=== PATIENT | female | born 1955 | race Caucasian/White ===

== ENCOUNTER 2024-07-04 19:38 | Emergency (ER) | payer MEDICARE, MEDICAID ==
[2024-07-06] MEDS ORDERED: NO HOME MEDS (06:41)
== END 2024-07-04 19:54 | disposition still patient (30) ==
LOC: ER 19:39
DX: F41.9 Anxiety disorder, unspecified (principal); Z53.21 Procedure and treatment not carried out due to patient leaving prior to being seen by health care provider
CPT/HCPCS: 99283

== ENCOUNTER 2024-07-05 02:28 | Emergency (ER) | payer MEDICARE, MEDICAID ==
[~2024-07-05] VITALS: Ht 152.4 cm; Wt 36.2 kg
[2024-07-05 05:37] VITALS: BP 160/86; PULSE 99; RESP 20; TEMP 98.6; O2SAT 96
[2024-07-05] MEDS: cephalexin 500mg capsule PO ONE (05:37)
[2024-07-06] MEDS ORDERED: NO HOME MEDS (06:41)
== END 2024-07-05 05:38 | disposition home or self-care (01) ==
LOC: ER 02:31
DX: F41.9 Anxiety disorder, unspecified (principal); Y08.89XA Assault by other specified means, initial encounter; Y93.89 Activity, other specified; Y92.89 Other specified places as the place of occurrence of the external cause; Y99.8 Other external cause status
CPT/HCPCS: 71045; 99283

== ENCOUNTER 2024-07-14 12:20 | Emergency (ER) | payer MEDICAID, MEDICARE, OTHER ==
[~2024-07-14 12:20] MED LIST: NO HOME MEDS
== END 2024-07-14 13:30 | disposition left against medical advice (07) ==
LOC: ER 12:21
DX: Z04.3 Encounter for examination and observation following other accident (principal); Z53.21 Procedure and treatment not carried out due to patient leaving prior to being seen by health care provider; W19.XXXA Unspecified fall, initial encounter; Y93.89 Activity, other specified; Y92.89 Other specified places as the place of occurrence of the external cause; Y99.8 Other external cause status

== ENCOUNTER 2024-07-20 08:07 | Inpatient (IN) | payer MEDICARE, MEDICAID ==
[2024-07-20] VITALS (27 sets, daily range): BP systolic 109–168; BP diastolic 53–104; PULSE 68–104; RESP 10–24; TEMP 97.6–98.4; O2SAT 92–99
[~2024-07-20] VITALS: Ht 152.4 cm; Wt 43.0 kg
[2024-07-20] MEDS ORDERED: magnesium hydroxide 30ml (MOM) UD suspension PO PRN (08:20)
[2024-07-20] MEDS ORDERED: potassium Cl 40MEQ/1/2NS 520ml 520 ML IV PRN (08:20)
[2024-07-20] MEDS ORDERED: mag hydrox/Alum hydrox/simeth 30ml oral suspension PO PRN (08:20)
[2024-07-20] MEDS ORDERED: magnesium Cl slow-release 64mg tablet PO PRN (08:20)
[2024-07-20] MEDS ORDERED: magnesium sulf-water 4G/100mL 100 ML IV PRN (08:20)
[2024-07-20] MEDS ORDERED: acetaminophen 325mg tablet PO PRN (08:20)
[2024-07-20] MEDS ORDERED: potassium Cl 20 mEq SR tablet PO PRN ×2 (08:20)
[2024-07-20] MEDS ORDERED: morphine 2 MG/ML inj. syringe IV PRN ×3 (08:20→13:15)
[2024-07-20] MEDS ORDERED: magnesium sulf-water 2g/50mL 50 ML IV PRN (08:20)
[2024-07-20] MEDS ORDERED: NICO-687 TD (08:44)
[2024-07-20] MEDS ORDERED: CYCL-1 PO (08:44)
[2024-07-20] MEDS ORDERED: TRAZ150T78 PO (08:44)
[2024-07-20] MEDS ORDERED: OLAN10TA73 PO (08:44)
[2024-07-20] MEDS ORDERED: ceFOXitin 2GM-NS 100mL ADDvant 100 ML IV ONE (12:15)
[2024-07-20 12:16] LABS: BASOPHILS # (AUTO) 0.1 X10'3 (0-0.2); BASOPHILS % (AUTO) 0.6 % (0-1); EOSINOPHILS # (AUTO) 0.2 X10'3 (0-0.9); EOSINOPHILS % (AUTO) 2.2 % (0-6); HEMATOCRIT 40.3 % (35.0-45.0); HEMOGLOBIN 13.4 g/dl (12.0-16.0); LYMPHOCYTES # (AUTO) 1.8 X10'3 (1.1-4.8); LYMPHOCYTES % (AUTO) 20.5 % (21-51); MEAN CORPUSCULAR HEMOGLOBIN 31.2 PG (27.0-31.0); MEAN CORPUSCULAR HGB CONC 33.2 g/dL (33.0-36.5); MEAN CORPUSCULAR VOLUME 93.8 FL (78-98); MEAN PLATELET VOLUME 8.1 FL (7.4-10.4); MONOCYTES # (AUTO) 0.5 X10'3 (0-0.9); MONOCYTES % (AUTO) 5.3 % (2-12); NEUTROPHILS # (AUTO) 6.3 X10'3 (1.8-7.7); NEUTROPHILS % (AUTO) 71.4 % (42-75); PLATELET COUNT 386 X10'3 (140-440); RED BLOOD COUNT 4.29 X10'6 (4.20-5.60); RED CELL DISTRIBUTION WIDTH 12.7 % (11.5-14.5); WHITE BLOOD COUNT 8.8 X10'3 (4.5-11.0)
[2024-07-20] MEDS: ceFOXitin sod/dextrose 2g/50ml 50 ML IV ONE (12:33)
[2024-07-20] MEDS ORDERED: sevoflurane 250ml liquid IH ONE (12:36)
[2024-07-20] MEDS ORDERED: midazolam 1 mg/ML 2ml injection ONE (12:37)
[2024-07-20] MEDS ORDERED: propofol inj 20 ML IV ONE (12:37)
[2024-07-20] MEDS ORDERED: fentaNYL /PF 50mcg/ml 5ml ampule ONE (12:37)
[2024-07-20 12:48] LABS: ALANINE AMINOTRANSFERASE 27 U/L (12-78); ALBUMIN 3.5 G/DL (3.4-5.0); ALBUMIN/GLOBULIN RATIO 0.9 (1.1-1.5); ALKALINE PHOSPHATASE 81 IU/L (46-116); ANION GAP 8 (8-16); ASPARTATE AMINO TRANSFERASE 23 U/L (10-37); BILIRUBIN,TOTAL 0.3 MG/DL (0.1-1.0); BLOOD UREA NITROGEN 20 MG/DL (7-18); BUN/CREATININE RATIO 39.2 (10.0-20.0); CALCIUM 8.9 MG/DL (8.5-10.1); CHLORIDE 102 MMOL/L (99-107); CREATININE 0.51 MG/DL (0.40-0.90); GLUCOSE 92 MG/DL (70-104); MAGNESIUM 1.9 MG/DL (1.5-2.4); POTASSIUM 4.1 MMOL/L (3.5-5.1); SODIUM 139 MMOL/L (135-145); TOTAL CARBON DIOXIDE 29.2 MMOL/L (24-32); TOTAL PROTEIN 7.2 G/DL (6.4-8.2); eCRCL 72 ML/MIN; eGFR > 90 ML/MIN
[2024-07-20] MEDS ORDERED: meperidine/PF 25mg/ml syringe IV PRN ×5 (13:10→13:15)
[2024-07-20] MEDS: ringers solution, lacted 1,000 ML IV SCH ×2 (13:10→13:15)
[2024-07-20] MEDS ORDERED: morphine 4 MG/ML inj SYRINge IV PRN ×2 (13:10→13:15)
[2024-07-20] MEDS ORDERED: proCHLORperazine 10 MG/2 ml inj IV PRN (13:15)
[2024-07-20] MEDS ORDERED: ondansetron/PF 4mg/2ml inj IV PRN ×2 (13:15→14:00)
[2024-07-20 13:33] LABS: APTT 26 SECONDS (22-32); INR 0.9 INR; PROTHROMBIN TIME 9.8 SECONDS (9.0-12.0)
[2024-07-20] MEDS ORDERED: BUPIVAcaine 2.5mg/ml inj 50ml vial (contains preservative) ONE (13:39)
[2024-07-20] MEDS ORDERED: BUPIVACAINE liposomal/PF 13.3 MG/ML vial IM ONE (13:39)
[2024-07-20] MEDS ORDERED: rocuronium 10mg/ml inj IV ONE (13:54)
[2024-07-20] MEDS ORDERED: glycopyrrolate 0.2mg/ml inj ONE (13:54)
[2024-07-20] MEDS ORDERED: neostigmine methylsulfate 1 MG/ML 10ml vial ONE (13:54)
[2024-07-20] MEDS ORDERED: naloxone 0.4 mg/ml inj IV PRN (14:00)
[2024-07-20] MEDS: ondansetron/PF 4mg/2ml inj IV PRN (15:12)
[2024-07-20] MEDS: normal saline 1000ml 1,000 ML IV SCH (15:13)
[2024-07-20] MEDS: ondansetron 4mg rapidly disintigrating tab PO STA (15:18)
[2024-07-20] MEDS: proCHLORperazine 10 MG/2 ml inj IV PRN (15:44)
[2024-07-20] MEDS: ceFOXitin 1 GM/D5W 50mL IVPB 50 ML IV SCH (15:50)
[2024-07-20] MEDS: meperidine/PF 25mg/ml syringe IV PRN (15:58)
[2024-07-20] MEDS: HYDROcodone/acetaminophen 5mg/325mg tablet PO PRN (19:04)
[2024-07-20] MEDS: hydrALAZINE 20mg/ml inj. IV SCH (19:05)
[2024-07-20] MEDS: K and/or MAG REPLACEMENT MC SCH (19:09)
[2024-07-20] MEDS: magnesium hydroxide 30ml (MOM) UD suspension PO SCH (22:00)
[2024-07-20] MEDS: traZODone 150mg tablet PO SCH (23:23)
[2024-07-21] VITALS (8 sets, daily range): BP systolic 101–122; BP diastolic 46–64; PULSE 64–100; RESP 12–18; TEMP 97.4–98.7; O2SAT 92–95
[2024-07-21] MEDS: morphine 2 MG/ML inj. syringe IV PRN (01:50)
[2024-07-21] MEDS: ondansetron/PF 4mg/2ml inj IV PRN (05:33)
[2024-07-21 07:53] LABS: BASOPHILS % (AUTO) 0.3 % (0-1); EOSINOPHILS % (AUTO) 0.1 % (0-6); HEMATOCRIT 39.7 % (35.0-45.0); HEMOGLOBIN 13.1 g/dl (12.0-16.0); LYMPHOCYTES # (AUTO) 1.4 X10'3 (1.1-4.8); LYMPHOCYTES % (AUTO) 10.5 % (21-51); MEAN CORPUSCULAR HEMOGLOBIN 30.8 PG (27.0-31.0); MEAN CORPUSCULAR VOLUME 93.3 FL (78-98); MEAN PLATELET VOLUME 8.7 FL (7.4-10.4); MONOCYTES # (AUTO) 0.8 X10'3 (0-0.9); MONOCYTES % (AUTO) 6.3 % (2-12); NEUTROPHILS # (AUTO) 10.8 X10'3 (1.8-7.7); NEUTROPHILS % (AUTO) 82.8 % (42-75); PLATELET COUNT 393 X10'3 (140-440); RED BLOOD COUNT 4.25 X10'6 (4.20-5.60); RED CELL DISTRIBUTION WIDTH 13.1 % (11.5-14.5)
[2024-07-21] MEDS: olanzapine 10mg tablet PO SCH (08:00)
[2024-07-21 08:18] LABS: ALBUMIN 3.1 G/DL (3.4-5.0); ANION GAP 10 (8-16); BLOOD UREA NITROGEN 13 MG/DL (7-18); CALCIUM 8.4 MG/DL (8.5-10.1); CHLORIDE 98 MMOL/L (99-107); CREATININE 0.81 MG/DL (0.40-0.90); GLUCOSE 146 MG/DL (70-104); POTASSIUM 3.9 MMOL/L (3.5-5.1); SODIUM 134 MMOL/L (135-145); TOTAL CARBON DIOXIDE 25.9 MMOL/L (24-32); eCRCL 45 ML/MIN; eGFR 70 ML/MIN
[2024-07-22 06:00] VITALS: BP 119/63; PULSE 92; RESP 14; TEMP 97.8; O2SAT 97
[2024-07-22 07:15] LABS: BASOPHILS % (AUTO) 0.4 % (0-1); EOSINOPHILS # (AUTO) 0.1 X10'3 (0-0.9); EOSINOPHILS % (AUTO) 0.8 % (0-6); HEMATOCRIT 36.8 % (35.0-45.0); HEMOGLOBIN 12.5 g/dl (12.0-16.0); LYMPHOCYTES # (AUTO) 1.7 X10'3 (1.1-4.8); LYMPHOCYTES % (AUTO) 15.4 % (21-51); MEAN CORPUSCULAR HEMOGLOBIN 31.7 PG (27.0-31.0); MEAN CORPUSCULAR HGB CONC 33.9 g/dL (33.0-36.5); MEAN CORPUSCULAR VOLUME 93.3 FL (78-98); MEAN PLATELET VOLUME 8.6 FL (7.4-10.4); MONOCYTES # (AUTO) 0.6 X10'3 (0-0.9); NEUTROPHILS # (AUTO) 8.3 X10'3 (1.8-7.7); NEUTROPHILS % (AUTO) 77.4 % (42-75); PLATELET COUNT 417 X10'3 (140-440); RED BLOOD COUNT 3.94 X10'6 (4.20-5.60); RED CELL DISTRIBUTION WIDTH 12.9 % (11.5-14.5); WHITE BLOOD COUNT 10.7 X10'3 (4.5-11.0)
[2024-07-22 07:27] LABS: ALBUMIN 2.5 G/DL (3.4-5.0); ANION GAP 7 (8-16); BLOOD UREA NITROGEN 13 MG/DL (7-18); BUN/CREATININE RATIO 20.3 (10.0-20.0); CALCIUM 8.2 MG/DL (8.5-10.1); CHLORIDE 102 MMOL/L (99-107); CREATININE 0.64 MG/DL (0.40-0.90); GLUCOSE 115 MG/DL (70-104); SODIUM 138 MMOL/L (135-145); eCRCL 57 ML/MIN; eGFR > 90 ML/MIN
[2024-07-22 08:00] VITALS: RESP 14; O2SAT 97
[2024-07-22 10:00] VITALS: BP 115/57; PULSE 94; RESP 15; TEMP 97.1; O2SAT 97
[2024-07-22 18:00] VITALS: BP 138/67; PULSE 105; RESP 16; TEMP 98.4; O2SAT 91
[2024-07-22 19:24] VITALS: BP 105/57; PULSE 95; RESP 16; TEMP 98.4; O2SAT 95
[2024-07-22] MEDS: enoxaparin 40mg/0.4ml syringe SUBCUT SCH (19:53)
[2024-07-22 22:00] VITALS: BP 117/62; PULSE 81; RESP 16; TEMP 98.2; O2SAT 95
[2024-07-23] VITALS (8 sets, daily range): BP systolic 114–139; BP diastolic 57–72; PULSE 89–107; RESP 14–16; TEMP 98.2–98.6; O2SAT 91–97
[2024-07-23 07:28] LABS: ALBUMIN 2.8 G/DL (3.4-5.0); ANION GAP 6 (8-16); BLOOD UREA NITROGEN 14 MG/DL (7-18); CALCIUM 8.2 MG/DL (8.5-10.1); CHLORIDE 101 MMOL/L (99-107); GLUCOSE 112 MG/DL (70-104); SODIUM 134 MMOL/L (135-145); TOTAL CARBON DIOXIDE 26.6 MMOL/L (24-32); eCRCL 73 ML/MIN; eGFR > 90 ML/MIN
[2024-07-23 07:29] LABS: POTASSIUM 4.4 MMOL/L (3.5-5.1)
[2024-07-23] MEDS: LORazepam 2 mg/ml vial IV PRN (09:29)
[2024-07-23 15:26] LABS: BASOPHILS % (AUTO) 0.4 % (0-1); EOSINOPHILS # (AUTO) 0.1 X10'3 (0-0.9); HEMOGLOBIN 12.7 g/dl (12.0-16.0); LYMPHOCYTES # (AUTO) 1.5 X10'3 (1.1-4.8); LYMPHOCYTES % (AUTO) 13.1 % (21-51); MEAN CORPUSCULAR HGB CONC 32.5 g/dL (33.0-36.5); MEAN CORPUSCULAR VOLUME 92.5 FL (78-98); MONOCYTES # (AUTO) 0.7 X10'3 (0-0.9); MONOCYTES % (AUTO) 6.5 % (2-12); NEUTROPHILS # (AUTO) 9.1 X10'3 (1.8-7.7); PLATELET COUNT 436 X10'3 (140-440); RED BLOOD COUNT 4.22 X10'6 (4.20-5.60); WHITE BLOOD COUNT 11.5 X10'3 (4.5-11.0)
[2024-07-23] MEDS: hyDRALAzine 10mg tablet PO SCH (21:00)
[2024-07-24 06:00] VITALS: BP 137/64; PULSE 89; RESP 18; TEMP 97.5; O2SAT 91
[2024-07-24 06:32] LABS: BASOPHILS # (AUTO) 0.1 X10'3 (0-0.2); BASOPHILS % (AUTO) 0.6 % (0-1); EOSINOPHILS # (AUTO) 0.3 X10'3 (0-0.9); HEMOGLOBIN 12.6 g/dl (12.0-16.0); LYMPHOCYTES # (AUTO) 2.3 X10'3 (1.1-4.8); MEAN CORPUSCULAR HEMOGLOBIN 31.1 PG (27.0-31.0); MEAN CORPUSCULAR HGB CONC 33.3 g/dL (33.0-36.5); MEAN CORPUSCULAR VOLUME 93.5 FL (78-98); MEAN PLATELET VOLUME 8.6 FL (7.4-10.4); MONOCYTES # (AUTO) 0.6 X10'3 (0-0.9); NEUTROPHILS # (AUTO) 6.4 X10'3 (1.8-7.7); NEUTROPHILS % (AUTO) 66.4 % (42-75); PLATELET COUNT 479 X10'3 (140-440); RED BLOOD COUNT 4.06 X10'6 (4.20-5.60); RED CELL DISTRIBUTION WIDTH 12.7 % (11.5-14.5); WHITE BLOOD COUNT 9.7 X10'3 (4.5-11.0)
[2024-07-24 06:43] LABS: ALBUMIN 2.6 G/DL (3.4-5.0); ANION GAP 6 (8-16); BLOOD UREA NITROGEN 15 MG/DL (7-18); BUN/CREATININE RATIO 27.8 (10.0-20.0); CALCIUM 8.4 MG/DL (8.5-10.1); CHLORIDE 101 MMOL/L (99-107); CREATININE 0.54 MG/DL (0.40-0.90); GLUCOSE 88 MG/DL (70-104); POTASSIUM 3.6 MMOL/L (3.5-5.1); SODIUM 134 MMOL/L (135-145); TOTAL CARBON DIOXIDE 26.7 MMOL/L (24-32); eCRCL 68 ML/MIN; eGFR > 90 ML/MIN
[2024-07-24 07:00] VITALS: RESP 18; O2SAT 91
[2024-07-24 10:00] VITALS: BP 130/60; PULSE 94; RESP 18; TEMP 98; O2SAT 93
[2024-07-24] MEDS: hyDRALAzine 10mg tablet PO SCH (15:37)
[2024-07-24 18:00] VITALS: BP 170/83; PULSE 89; RESP 18; TEMP 97.5; O2SAT 96
[2024-07-24 20:00] VITALS: RESP 18; O2SAT 96
[2024-07-24 22:00] VITALS: BP 158/74; PULSE 101; RESP 18; TEMP 97.6; O2SAT 92
[2024-07-25 06:10] LABS: ALBUMIN 2.6 G/DL (3.4-5.0); ANION GAP 6 (8-16); BLOOD UREA NITROGEN 10 MG/DL (7-18); BUN/CREATININE RATIO 16.7 (10.0-20.0); CHLORIDE 105 MMOL/L (99-107); GLUCOSE 104 MG/DL (70-104); POTASSIUM 3.4 MMOL/L (3.5-5.1); SODIUM 139 MMOL/L (135-145); TOTAL CARBON DIOXIDE 27.6 MMOL/L (24-32); eCRCL 61 ML/MIN; eGFR > 90 ML/MIN
[2024-07-25 06:13] LABS: BASOPHILS # (AUTO) 0.1 X10'3 (0-0.2); BASOPHILS % (AUTO) 0.8 % (0-1); EOSINOPHILS # (AUTO) 0.5 X10'3 (0-0.9); EOSINOPHILS % (AUTO) 5.2 % (0-6); HEMATOCRIT 35.8 % (35.0-45.0); HEMOGLOBIN 12.1 g/dl (12.0-16.0); LYMPHOCYTES % (AUTO) 22.9 % (21-51); MEAN CORPUSCULAR HEMOGLOBIN 31.3 PG (27.0-31.0); MEAN CORPUSCULAR HGB CONC 33.9 g/dL (33.0-36.5); MEAN CORPUSCULAR VOLUME 92.5 FL (78-98); MEAN PLATELET VOLUME 7.9 FL (7.4-10.4); MONOCYTES # (AUTO) 0.5 X10'3 (0-0.9); MONOCYTES % (AUTO) 6.1 % (2-12); NEUTROPHILS # (AUTO) 5.8 X10'3 (1.8-7.7); PLATELET COUNT 438 X10'3 (140-440); RED BLOOD COUNT 3.88 X10'6 (4.20-5.60); WHITE BLOOD COUNT 8.8 X10'3 (4.5-11.0)
[2024-07-25 06:41] VITALS: BP 131/78; PULSE 75; RESP 17; TEMP 97.7; O2SAT 95
[2024-07-25 07:00] VITALS: RESP 17; O2SAT 95
[2024-07-25 14:27] VITALS: BP_SYST 132; PULSE 89
[2024-07-25 14:30] VITALS: RESP 12
[2024-07-25] MEDS ORDERED: magnesium sulf-water 2g/50mL 50 ML IV PRN (16:20)
[2024-07-25] MEDS ORDERED: potassium Cl 40MEQ/1/2NS 520ml 520 ML IV PRN (16:20)
[2024-07-25] MEDS ORDERED: potassium Cl 20 mEq SR tablet PO PRN ×2 (16:20)
[2024-07-25] MEDS ORDERED: K and/or MAG REPLACEMENT MC SCH (20:00)
== END 2024-07-25 15:40 | disposition home or self-care (01) | DRG 330 ==
LOC: PAS IN 12:05 → ORTHO 4S 16:50 → SUR 3N 07-23 17:23
PROVIDERS: ADMIT Surgery; ATTEND Surgery
PROC: 0DQP0ZZ Repair Rectum, Open Approach (ICD-10-PCS; principal; 2024-07-20 12:36)
DX: K62.3 Rectal prolapse (principal); E44.0 Moderate protein-calorie malnutrition; Z68.1 Body mass index [BMI] 19.9 or less, adult; Q43.8 Other specified congenital malformations of intestine; K80.20 Calculus of gallbladder without cholecystitis without obstruction; F31.9 Bipolar disorder, unspecified; Z90.49 Acquired absence of other specified parts of digestive tract; Z88.6 Allergy status to analgesic agent; Z88.8 Allergy status to other drugs, medicaments and biological substances; Z91.018 Allergy to other foods; Z79.899 Other long term (current) drug therapy; Z90.710 Acquired absence of both cervix and uterus; Z87.891 Personal history of nicotine dependence; Z88.1 Allergy status to other antibiotic agents
CPT/HCPCS: 36415; 80048; 80053; 83735; 85025; 85610; 85730; 97116; 97161; 97530; A4618; A6253; A6449; A7000; C1758; C9290; G0378; J0360; J0694; J0780; J1100; J1650; J2060; J2175; J2250; J2270; J2405; J2704; J2710; J3010; J3490; J7030; J7120

== ENCOUNTER 2024-08-18 14:04 | Emergency (ER) | payer MEDICAID, MEDICARE, OTHER ==
[~2024-08-18] VITALS: Ht 160 cm; Wt 37.4 kg
[~2024-08-18 14:04] MED LIST changes: +CYCL-1 PO; +NICO-687 TD; -NO HOME MEDS; +OLAN10TA73 PO; +TRAZ150T78 PO
[2024-08-18] MEDS ORDERED: OLANZapine 2.5MG tablet PO SCH (14:55)
[2024-08-18] MEDS ORDERED: olanzapine 10mg tablet PO SCH (14:56)
[2024-08-18 15:12] LABS: BASOPHILS # (AUTO) 0.1 X10'3 (0-0.2); BASOPHILS % (AUTO) 1.1 % (0-1); EOSINOPHILS # (AUTO) 0.1 X10'3 (0-0.9); EOSINOPHILS % (AUTO) 1.1 % (0-6); HEMATOCRIT 46.5 % (35.0-45.0); HEMOGLOBIN 15.8 g/dl (12.0-16.0); LYMPHOCYTES % (AUTO) 13.8 % (21-51); MEAN CORPUSCULAR HEMOGLOBIN 31.7 PG (27.0-31.0); MEAN PLATELET VOLUME 8.8 FL (7.4-10.4); MONOCYTES # (AUTO) 0.5 X10'3 (0-0.9); MONOCYTES % (AUTO) 7.6 % (2-12); NEUTROPHILS # (AUTO) 5.5 X10'3 (1.8-7.7); NEUTROPHILS % (AUTO) 76.4 % (42-75); PLATELET COUNT 320 X10'3 (140-440); RED BLOOD COUNT 4.99 X10'6 (4.20-5.60); WHITE BLOOD COUNT 7.1 X10'3 (4.5-11.0)
[2024-08-18 15:33] LABS: ALBUMIN 4.1 G/DL (3.4-5.0); ANION GAP 11 (8-16); BLOOD UREA NITROGEN 9 MG/DL (7-18); BUN/CREATININE RATIO 19.1 (10.0-20.0); CALCIUM 9.5 MG/DL (8.5-10.1); CHLORIDE 99 MMOL/L (99-107); CREATININE 0.47 MG/DL (0.40-0.90); ETHANOL < 10 MG/DL (<10); GLUCOSE 105 MG/DL (70-104); SODIUM 138 MMOL/L (135-145); THYROID STIMULATING HORMONE 2.42 ulU/ml (0.34-4.50); TOTAL CARBON DIOXIDE 28.1 MMOL/L (24-32); eCRCL 68 ML/MIN; eGFR > 90 ML/MIN
[2024-08-18 15:38] LABS: POTASSIUM 2.9 MMOL/L (3.5-5.1)
[2024-08-18 16:59] LABS: BILIRUBIN,URINE MODERATE (Neg); CLARITY,URINE SLIGHTLY CLOUDY (Clear); GLUCOSE, URINE NEGATIVE (Neg); KETONES,URINE >=80 mg/dl (Neg); LEUKOCYTE ESTERASE ,URINE NEGATIVE (Neg); NITRITES, URINE NEGATIVE (Neg); OCCULT BLOOD,URINE NEGATIVE (Neg); PROTEIN,URINE 100 mg/dl (Neg)
[2024-08-18] MEDS: potassium Cl 20 mEq SR tablet PO SCH (16:59)
[2024-08-18] MEDS: LORazepam 0.5 MG tablet PO PRN (16:59)
[2024-08-18 17:00] VITALS: RESP 16
[2024-08-18] MEDS ORDERED: NO HOME MEDS (17:04)
[2024-08-18 17:06] LABS: UA COLLECTION TYPE VOIDED
[2024-08-18 17:07] LABS: COLOR,URINE DARK YELLOW (Yellow)
[2024-08-18 17:08] LABS: BACTERIA,URINE FEW /HPF (Neg); HYALINE CASTS 0-3 /LPF (NEGATIVE); MUCUS STRANDS MANY /LPF (Neg); RBC,URINE 0-2 /HPF (0-2); SQUAMOUS EPITHELIAL CELL,UR MODERATE /LPF (FEW)
[2024-08-18 17:14] LABS: URINE AMPHETAMINE SCREEN NEGATIVE (Neg); URINE BARBITUATE SCREEN NEGATIVE (Neg); URINE BENZODIAZEPINES SCREEN NEGATIVE (Neg); URINE CANNABINOID SCREEN NEGATIVE (Neg); URINE COCAINE SCREEN NEGATIVE (Neg); URINE METHADONE SCREEN NEGATIVE (Neg); URINE OPIATE SCREEN NEGATIVE (Neg); URINE PHENCYCLIDINE SCREEN NEGATIVE (Neg)
[2024-08-18] MEDS ORDERED: QUET50TA PO (18:39)
[2024-08-18 19:19] VITALS: BP 94/56; PULSE 92; O2SAT 98
[2024-08-18 19:23] VITALS: TEMP 97.8
== END 2024-08-18 19:20 | disposition home or self-care (01) ==
LOC: ER 14:05
DX: F41.9 Anxiety disorder, unspecified (principal); K62.3 Rectal prolapse; F12.10 Cannabis abuse, uncomplicated; F31.9 Bipolar disorder, unspecified; Z88.1 Allergy status to other antibiotic agents; Z88.6 Allergy status to analgesic agent; Z79.899 Other long term (current) drug therapy; Z20.822 Contact with and (suspected) exposure to COVID-19
CPT/HCPCS: 36415; 80048; 80305; 80320; 81001; 84443; 85025; 87811; 99284

== ENCOUNTER 2024-10-26 12:32 | Emergency (ER) | payer MEDICARE, MEDICAID ==
[~2024-10-26] VITALS: Ht 152.4 cm; Wt 32.6 kg
[~2024-10-26 12:32] MED LIST changes: -CYCL-1 PO; -NICO-687 TD; +NO HOME MEDS; -OLAN10TA73 PO; -TRAZ150T78 PO
[2024-10-26 12:41] VITALS: BP 167/97; PULSE 103; RESP 16; O2SAT 97
[2024-10-26] MEDS: LORazepam 0.5 MG tablet PO ONE (15:14)
[2024-10-26] MEDS ORDERED: HYDR-3965 PO (15:17)
[2024-10-26] MEDS ORDERED: LORA-268 PO (15:17)
[2024-10-26 15:33] VITALS: TEMP 97.7
== END 2024-10-26 15:37 | disposition home or self-care (01) ==
LOC: ER 12:32
DX: M25.552 Pain in left hip (principal); F41.9 Anxiety disorder, unspecified; F32.A Depression, unspecified; Z88.8 Allergy status to other drugs, medicaments and biological substances; Z88.6 Allergy status to analgesic agent
CPT/HCPCS: 99283

== ENCOUNTER 2025-01-09 19:20 | Emergency (ER) | payer SELFPAY ==
[~2025-01-09] VITALS: Ht 152.4 cm; Wt 38.0 kg
[~2025-01-09 19:20] MED LIST changes: +LORA-268 PO
[2025-01-09] MEDS ORDERED: DICL20GE TOP (22:25)
--- NOTE | 2025-01-09 22:26 | Physician Documentation ---
History of Present Illness ~ Chief Complaint: Mechanical Fall Stated Complaint: LEG PAIN Time Seen by MD: 21:45 Primary Medical Doctor: Neymar Mckeon MD HPI This is a 69-year-old female who presents with two days of pain to her left hip after a trip and fall landing on her left hip, patient reports that she has surgical hardware in the area after a previous trip and fall some time ago. Patient reports she was able to walk and bear weight on the affected limb though it was quite painful to do so, patient reports pain 8/10 despite taking Tylenol for the pain. Patient reports no other injuries or acute medical concerns or symptoms. Tetanus within 5 Years?: No Medication Reconciliation Allergies: Coded Allergies: diphenhydramine (Unverified Allergy, Intermediate, RESTLESS LEG SYNDROME, 08/20/24) ibuprofen (Verified Allergy, Intermediate, 08/20/24) aspirin (Unverified Allergy, Unknown, 08/20/24) haloperidol (Unverified Allergy, Unknown, 08/20/24) orange (Verified Allergy, Unknown, 08/20/24) Uncoded Allergies: CERTAIN ANTIBIOTICS (Allergy, Unknown, 07/05/24) UNABLE TO STATES WHAT ABX SHE IS ALLERGIC TO Scheduled Diclofenac Sodium (Voltaren Arthritis Pain), 1 APPLIC TOP BID Scheduled PRN Lorazepam (Ativan), 1 TAB PO Q12H PRN PRN for anxiety Miscellaneous Medications Home Med List (No Home Medications), (Reported) Past Medical History Past Medical History: Depression Patient History: Patient reports no known family medical history. Review of Systems ROS Left hip pain as stated above in the HPI, otherwise all systems are reviewed and negative. Physical Exam Vital Signs: Temperature: 98.5, Source: Oral, Heart Rate: 103, Respiratory Rate: 17, BP: 162/87, Pulse Oximetry: 97, Weight: 37.950 Oxygen Flow Rate: 0 Physical Exam VITALS: Reviewed and as above. GENERAL: Alert, nontoxic appearing, no apparent distress. RESPIRATORY: No increased work of breathing, no respiratory distress, speaking in full clear sentences MUSCULOSKELETAL:Left hip tender to palpation, no deformity, no ecchymosis, no erythema, no edema Progress Results/Orders Results/Orders Orders - GUILLERMINA WILCOX MANAGER [employer] Femur 2 Views (01/09/25 21:10) Completed Orders - GUILLERMINA WILCOX [employer] Femur 2 Views (01/09/25 21:10) Oxycodone/Acetaminophen Tablet (Percocet (01/09/25 22:30) Ondansetron Disint. Tablet (Zofran Odt T (01/09/25 22:30) Medications Received in ER Medications (Trade) Dose Ordered Sig/Giuseppe Route PRN Reason Start Time Stop Time Status Last Admin Dose Admin (Percocet 5-325mg tab) 1 tab ONCE ONCE PO 01/09/25 22:30 01/09/25 22:31 DC 01/09/25 22:32 1 TAB (Zofran ODT tablet) 4 mg ONCE ONCE PO 01/09/25 22:30 01/09/25 22:31 DC 01/09/25 22:32 4 MG Vital Signs 01/09/25 01/09/25 21:00 23:00 Temp 98.5 98.6 Pulse 103 99 Resp 17 18 B/P (MAP) 162/87 160/86 Pulse Ox 97 97 O2 Flow Rate 0 EKG/XRAY/CT/US/VASC/MRI Bone/Soft Tissue X-Ray (Ext.) : Additional Comment Clinical History FALL Comparison None Technique: Four radiographs were submitted for review. Without Contrast ADRIANO JIMENEZ, [id number] FINDINGS:/IMPRESSION: Status post left hip ORIF. Degenerative changes at the left hip. Moderate stool in the colon. Degenerative changes at the knee. This report was electronically signed by Jasmyn Rodriguez MD on 01/09/2025 11:57:27 PM. Electronically Signed by:JASMYN RODRIGUEZ MD Date & Time: 01/10/25 0000 Dictated by: JASMYN RODRIGUEZ MD Dictation date and time: 01/10/25 0000 I have reviewed and agree with the radiology report. I have reviewed and interpreted the imaging as: No fracture or dislocation Medical Decision Making Findings This 69-year-old female presented with left hip and thigh pain after a trip and fall striking her left hip and thigh two days prior, patient reports she was able to walk and bear weight however it was quite painful for her. Physical exam did not demonstrate erythema, ecchymosis, crepitus, or deformity though hip and thigh were tender to palpation. As patient was reporting significant pain to the area she was medicated with dose of Percocet. Patient had reported no other injuries and no other injuries were observed on physical exam. Remainder of physical exam was benign and x-ray did not demonstrate evidence of fracture or dislocation. At a discussion with the patient about appropriate pain medication for outpatient management of her hip pain and with shared decision- making patient will opt for a topical NSAID in addition to Tylenol for continued hip pain. Patient is appropriate for outpatient follow up and was provided return to care precautions which she verbalized understanding of. Differential Dx:Considerations: Include: Closed head injury, Abrasion(s), Contusion(s), Hematoma(s), Laceration(s), Other (Fracture, dislocation,) Departure Disposition: 01 HOME / SELF CARE / HOMELESS Impression: Primary Impression: Pain in left thigh Condition: Improved Discharge Instructions: Contusion Additional Instructions: Use the Voltaren gel as prescribed, additionally use Tylenol as needed for pain as directed by the [id number] packaging. Please follow up with your primary care provider in the next few days. Please return to the emergency department for any new or worsening concerning symptoms. Referrals: NO PRIMARY CARE PROVIDER (PCP) Prescriptions Diclofenac Sodium (Voltaren Arthritis Pain) 1 % Gel..gram. 1 APPLIC TOP BID for pain for 10 Days, #30 GM Prov: GUILLERMINA WILCOX 01/09/25 Education Educated: Patient Educated regarding: diagnosis, treatment, prognosis, need for follow up Signature Scribe Signature: No scribe Attestation: The note accurately reflects work and decisions made by me.COLUMBA Holt 01/10/25 03:45 GUILLERMINA WILCOX January 09, 2025 22:26
[2025-01-09] MEDS: oxyCODONE/APAP 5-325mg tablet PO ONE (22:32)
[2025-01-09] MEDS: ondansetron 4mg rapidly disintigrating tab PO ONE (22:32)
[2025-01-09 23:00] VITALS: BP 160/86; PULSE 99; RESP 18; TEMP 98.6; O2SAT 97
--- NOTE | 2025-01-10 | RADIOLOGY REPORT ---
Clinical History FALL Comparison None Technique: Four radiographs were submitted for review. Without Contrast ADRIANO JIMENEZ, [id number] FINDINGS:/IMPRESSION: Status post left hip ORIF. Degenerative changes at the left hip. Moderate stool in the colon. Degenerative changes at the knee. This report was electronically signed by Ino Monet MD on 01/09/2025 11:57:27 PM.
== END 2025-01-09 23:01 | disposition home or self-care (01) ==
LOC: ER 19:20
DX: M25.552 Pain in left hip (principal); Z88.6 Allergy status to analgesic agent; W01.0XXA Fall on same level from slipping, tripping and stumbling without subsequent striking against object, initial encounter; Y93.89 Activity, other specified; Y92.89 Other specified places as the place of occurrence of the external cause; Y99.8 Other external cause status
CPT/HCPCS: 73552; 99284

== ENCOUNTER 2025-01-11 07:08 | Emergency (ER) | payer SELFPAY ==
[~2025-01-11] VITALS: Ht 152.4 cm; Wt 36.7 kg
[~2025-01-11 07:08] MED LIST changes: +DICL20GE TOP
[2025-01-11 07:10] VITALS: BP 175/95; PULSE 107; O2SAT 98
[2025-01-11] MEDS ORDERED: LIDO1ADH78 TOP (08:41)
--- NOTE | 2025-01-11 08:42 | Physician Documentation ---
History of Present Illness ~ Chief Complaint: Hip pain Stated Complaint: PAIN IN LEG Time Seen by MD: 08:36 Primary Medical Doctor: Neymar Mckeon MD HPI 69-year-old female history of left femur fracture status post IM nail 2023 presenting for left thigh pain after fall 2 days ago. She was seen in the ED at that time had x-rays performed which showed no acute fracture. She was given a Percocet which �worked well� she also uses THC to help manage her pain and she does not have any money to buy any. She denies any fevers Tetanus within 5 Years?: No Medication Reconciliation Allergies: Coded Allergies: diphenhydramine (Unverified Allergy, Intermediate, RESTLESS LEG SYNDROME, 08/20/24) ibuprofen (Verified Allergy, Intermediate, 08/20/24) aspirin (Unverified Allergy, Unknown, 08/20/24) haloperidol (Unverified Allergy, Unknown, 08/20/24) orange (Verified Allergy, Unknown, 08/20/24) Uncoded Allergies: CERTAIN ANTIBIOTICS (Allergy, Unknown, 07/05/24) UNABLE TO STATES WHAT ABX SHE IS ALLERGIC TO Scheduled Diclofenac Sodium (Voltaren Arthritis Pain), 1 APPLIC TOP BID Lidocaine (Lidocaine), 1 PATCH TOP DAILY Scheduled PRN Lorazepam (Ativan), 1 TAB PO Q12H PRN PRN for anxiety Miscellaneous Medications Home Med List (No Home Medications), (Reported) Past Medical History Past Medical History: Depression Patient History: Patient reports no known family medical history. Review of Systems All Other Systems at this time: Reviewed and Negative Physical Exam Vital Signs: Temperature: 98.0, Source: Temporal, Heart Rate: 107, Respiratory Rate: 16, BP: 175/95, Pulse Oximetry: 98, Weight: 36.700 Oxygen Flow Rate: 0 Physical Exam Well-appearing no distress ambulating without discomfort Pelvis nontender to compression Intact passive and active range of motion left hip and knee. She has some tenderness along her left greater trochanter and some discomfort with hip f lexion Progress Results/Orders Results/Orders Orders - ELENA STONE MD Morphine Sulfate Ir 15mg Tab (Morphine S (01/11/25 08:45) Lidocaine 5% Patch (Lidoderm 5% Patch) (01/11/25 08:45) Vital Signs 01/11/25 07:10 Temp 98.0 Pulse 107 Resp 16 B/P (MAP) 175/95 Pulse Ox 98 O2 Flow Rate 0 EKG/XRAY/CT/US/VASC/MRI Bone/Soft Tissue X-Ray (Ext.) : Additional Comment I independently interpreted hip x-ray January 09, 2025 normal SI joints intact pelvic ring, left IM nail in place, intact alignment Medical Decision Making Additional info obtained from: old records Findings Reviewed discharge summary 08/29/2024 hip fracture Additional Comment Pelvic fracture, hip fracture, bursitis, sciatica Departure Disposition: HOME / SELF CARE / HOMELESS Impression: Primary Impression: Bursitis of hip Qualified Codes: M70.62 - Trochanteric bursitis, left hip Additional Impression Text 61-year-old female presenting for persistent left thigh pain after a ground level fall. She was seen here 2 days ago where she had x-ray performed which was unremarkable. I considered repeat x-ray today however she is weight-bearing has no pain with range of motion has tenderness over her trochanteric bursa and is ambulating without discomfort. She is refusing anti-inflammatories, glucocorticoids and muscle relaxers. She only wants to topical treatment. Additional Instructions: Please use the lidocaine patch once daily. Return for fever or worsening pain. Take Tylenol 1000 mg every 6 hours as needed for discomfort Referrals: NO PRIMARY CARE PROVIDER (PCP) Prescriptions Lidocaine (Lidocaine) 4 % Adh..patch 1 PATCH TOP DAILY for 10 Days, #10 PATCH 0 Refills Prov: ELENA STONE MD 01/11/25 Signature Scribe Signature: na Attestation: ELENA Dai MD January 11, 2025 08:42
[2025-01-11] MEDS ORDERED: morphine sulfate IR 15MG tablet PO ONE (08:45)
[2025-01-11 09:24] VITALS: RESP 16
[2025-01-11] MEDS: LIDOcaine 5% patch TP ONE (09:24)
[2025-01-11] MEDS: oxyCODONE/APAP 5-325mg tablet PO ONE (09:24)
[2025-01-11 09:27] VITALS: TEMP 98
== END 2025-01-11 09:29 | disposition home or self-care (01) ==
LOC: ER 07:09
DX: M70.72 Other bursitis of hip, left hip (principal); F32.A Depression, unspecified; Z88.6 Allergy status to analgesic agent; Z88.8 Allergy status to other drugs, medicaments and biological substances; Z91.018 Allergy to other foods; Z79.899 Other long term (current) drug therapy; Y93.89 Activity, other specified
CPT/HCPCS: 99284

== ENCOUNTER 2025-02-10 04:20 | Emergency (ER) | payer OTHER ==
[~2025-02-10] VITALS: Ht 152.4 cm; Wt 35.9 kg
[~2025-02-10 04:20] MED LIST changes: +LIDO1ADH78 TOP
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
--- NOTE | 2025-02-10 05:34 | RADIOLOGY REPORT ---
EXAM: DI FOREARM,INCL.ONE JOINT CLINICAL INDICATION: ARM PAIN TECHNIQUE: DI FOREARM,INCL.ONE JOINT, 2v Comparison: None FINDINGS/IMPRESSION: There is no evidence of acute fracture or dislocation. The visualized joint space is well maintained. The alignment is anatomical. There is no radiopaque foreign body.
[2025-02-10 05:41] VITALS: BP 168/97; PULSE 100; RESP 18; TEMP 98.4; O2SAT 95
== END 2025-02-10 05:49 | disposition home or self-care (01) ==
LOC: ER 04:20
DX: M79.631 Pain in right forearm (principal); F32.A Depression, unspecified; Z88.6 Allergy status to analgesic agent; Z88.8 Allergy status to other drugs, medicaments and biological substances; Z91.018 Allergy to other foods; Z79.899 Other long term (current) drug therapy; Y04.8XXA Assault by other bodily force, initial encounter; Y93.89 Activity, other specified; Y92.89 Other specified places as the place of occurrence of the external cause; Y99.8 Other external cause status
CPT/HCPCS: 73090; 99284

== ENCOUNTER 2025-02-23 17:42 | Emergency (ER) | payer OTHER ==
[~2025-02-23] VITALS: Ht 154.9 cm; Wt 36.0 kg
[2025-02-23 17:51] VITALS: BP 184/116; PULSE 121; RESP 18; O2SAT 94
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
[2025-02-23] MEDS: acetaminophen 325mg tablet PO STA (18:43)
== END 2025-02-23 18:51 | disposition home or self-care (01) ==
LOC: ER 17:43
DX: R07.81 Pleurodynia (principal); F32.A Depression, unspecified; Z88.6 Allergy status to analgesic agent; Z88.8 Allergy status to other drugs, medicaments and biological substances; Z79.899 Other long term (current) drug therapy
CPT/HCPCS: 99282; 99283

== ENCOUNTER 2025-05-31 05:28 | Emergency (ER) | payer OTHER, MEDICARE ==
[~2025-05-31] VITALS: Ht 152.4 cm; Wt 45.0 kg
[2025-05-31 06:02] VITALS: TEMP 97
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
[2025-05-31] MEDS ORDERED: CEPH-585 PO (06:39)
[2025-05-31 06:45] VITALS: BP 172/88; PULSE 97; RESP 16; O2SAT 96
[2025-05-31] MEDS: HYDROcodone/acetaminophen 5mg/325mg tablet PO ONE (06:50)
== END 2025-05-31 06:57 | disposition home or self-care (01) ==
LOC: ER 05:28
DX: L03.113 Cellulitis of right upper limb (principal); Z88.6 Allergy status to analgesic agent
CPT/HCPCS: 99283